=== PATIENT | female | born 1990 | race Caucasian/White ===

== ENCOUNTER 2021-04-22 08:52 | Outpatient (CLI) | payer OTHER | END 2021-04-22 08:53 | disposition home or self-care (01) | LOC: NM 08:52 | PROVIDERS: ATTEND Internal Medicine Endocrinology, Diabetes & Metabolism | DX: E05.90 Thyrotoxicosis, unspecified without thyrotoxic crisis or storm (principal); R94.6 Abnormal results of thyroid function studies | CPT/HCPCS: 78014; A9516 ==

== ENCOUNTER 2021-05-16 12:01 | Outpatient (CLI) | payer OTHER ==
[2021-05-16 12:38] LABS: BHCG - Serum Negative (NEGATIVE); Pregs Control Background? CLEAR/WHITE (CLR/WHITE); Pregs Control Bar Appear? YES (CONTROL BAR)
== END 2021-05-16 12:02 | disposition home or self-care (01) ==
LOC: NM 12:01
PROVIDERS: ATTEND Internal Medicine Endocrinology, Diabetes & Metabolism
DX: E05.80 Other thyrotoxicosis without thyrotoxic crisis or storm (principal)
CPT/HCPCS: 79005; 84703; A9517